=== PATIENT | female | born 1990 | race American Indian/Alaskan Native ===

== ENCOUNTER 2019-04-12 00:52 | Emergency (ER) | payer BC, OTHER ==
[2019-04-12] MEDS ORDERED: SODIUM CHLORIDE 0.9% 1000 ML 1,000 ML IV ONE (02:06)
[2019-04-12] MEDS ORDERED: METOCLOPRAMIDE 10 MG/2 ML INJ IV STA (02:06)
[2019-04-12] MEDS ORDERED: KETOROLAC 30 MG/1 ML INJ IV STA (02:06)
[2019-04-12] MEDS ORDERED: diphenhydrAMINE 50 MG/ML VIAL IV STA (02:06)
[2019-04-12] MEDS ORDERED: ONDANSETRON 4 MG/2 ML INJ IV STA (02:06)
--- NOTE | 2019-04-12 02:06 | Emergency Department Report ---
ED Headache HPI - General Chief Complaint: Headache Stated Complaint: MIGRAINE W/NAUSEA Time Seen by Provider: 04/12/19 01:46 Source: patient - History of Present Illness Initial Comments: Ms. Galarza is a 28-year-old female who presents to emergency department complaining of gradual headache that was non-maximal at onset is similar to headaches the patient has had in the past. The patient has no recent history of head trauma and is not taking any anticoagulation. They have had no sick contacts, fever, neck stiffness, rash, or seizure. Patient reports no eye pain and no change in pain when moving from light to dark environments. Additionally there have been no other household occupants with complaints of headache during this time. Patient denies rash, chills, sweats, vomiting, chest pain, shortness of breath, or syncope. Timing/Duration: 4-6 hours Quality: moderate Head Injury Location: frontal, parietal Recent Head Trauma: occasional headaches Associated Symptoms: denies: confusion, fatigue, facial pain, fever/chills, nausea/vomiting, nasal drainage, numbness in legs/feet, seizures, sinus infection, stiff neck, vision changes Allergies/Adverse Reactions: Allergies No Known Allergies Allergy (Verified 04/12/19 01:09) Home Medications: Ambulatory Orders Ibuprofen [Motrin 800 MG tab] 800 mg PO TID PRN #30 tablet 09/11/14 methOCARBAMOL [Robaxin] 500 mg PO BID PRN #30 tab 09/11/14 traMADoL [Ultram 50 MG tab] 50 mg PO Q6HR PRN #20 tablet 09/11/14 Butalb/Acetaminophen/Caffeine [Fioricet 50-300-40 mg CAP] 1 cap PO Q6HR PRN #20 cap 04/12/19 ED Review of Systems ROS: Stated complaint: MIGRAINE W/NAUSEA Other details as noted in HPI Comment: All other systems reviewed and negative ED Past Medical Hx - Past Medical History Previous Medical History?: Yes Additional medical history: ASD. WPW - Surgical History Hx Appendectomy: Yes Additional Surgical History: ASD repair. WPW repair. Tonsilectomy - Social History Smoking Status: Never Smoker Substance Use Type: None - Medications Home Medications: Home Medications Medication Instructions Recorded Confirmed Last Taken Type Ibuprofen [Motrin 800 MG tab] 800 mg PO TID PRN #30 tablet 09/11/14 Unknown Rx methOCARBAMOL [Robaxin] 500 mg PO BID PRN #30 tab 09/11/14 Unknown Rx traMADoL [Ultram 50 MG tab] 50 mg PO Q6HR PRN #20 tablet 09/11/14 Unknown Rx Butalb/Acetaminophen/Caffeine 1 cap PO Q6HR PRN #20 cap 04/12/19 Unknown Rx [Fioricet 50-300-40 mg CAP] ED Physical Exam - General Limitations: No Limitations General appearance: alert, in no apparent distress - Head Head exam: Present: atraumatic, normocephalic - Eye Eye exam: Present: normal appearance, PERRL, EOMI Pupils: Present: normal accommodation, other (negative the funduscopic examination). Absent: unequal - ENT ENT exam: Present: normal exam, normal orophraynx, mucous membranes moist, TM's normal bilaterally, other (funduscopic examination.) - Neck Neck exam: Present: normal inspection, full ROM, other (no bruits). Absent: meningismus, lymphadenopathy, thyromegaly - Respiratory Respiratory exam: Present: normal lung sounds bilaterally. Absent: respiratory distress, wheezes, rales, chest wall tenderness, accessory muscle use - Cardiovascular Cardiovascular Exam: Present: regular rate, normal rhythm. Absent: systolic murmur, diastolic murmur, rubs, gallop - GI/Abdominal GI/Abdominal exam: Present: soft, normal bowel sounds. Absent: tenderness, guarding, hyperactive bowel sounds, hypoactive bowel sounds, mass, bruit, p ulsatile mass - Extremities Exam Extremities exam: Present: normal inspection, full ROM - Back Exam Back exam: Present: normal inspection - Neurological Exam Neurological exam: Present: alert, oriented X3, CN II-XII intact, normal gait - Psychiatric Psychiatric exam: Present: normal affect, normal mood. Absent: flat affect, manic, suicidal ideation - Skin Skin exam: Present: warm, dry, intact, normal color. Absent: rash ED Course Vital Signs 04/12/19 04/12/19 04/12/19 01:09 02:24 05:35 Temperature 98.6 F 97.9 F Pulse Rate 91 H 74 Respiratory 20 18 18 Rate Blood Pressure 148/100 Blood Pressure 134/80 [Left] O2 Sat by Pulse 100 95 Oximetry ED Medical Decision Making - Medical Decision Making This patient presents with a headache most consistent with migraine. Differential diagnosis includes migraine versus tension type headache. No headac he red flags. Neurologic exam without evidence of meningismus, focal neurologic findings.Based on the patient's history and physical there is very low clinical suspicion for significant intracranial pathology. The headache was NOT sudden onset, NOT maximal at onset, there are NO neurologic findings, the patient does NOT have a fever, the patient does NOT have any jaw claudication, the patient does NOT endorse a clotting disorder, patient DENIES any trauma or eye pain and the headache is NOT associated with dizziness or ataxia. Presentation not consistent with acute intracranial bleed to include SAH (lack of risk factors, headache history). Presentation not consistent with acute [employer]UCK [employer]IVER infection to include meningitis or brain abscess, Temporal arteritis unlikely, as is acute angle closure glaucoma given history and physical findings. Presentation not consistent with other acute, emergent causes of headache at this time. Plan to treat symptomatically with pain medication. No indication for imaging/LP at this time. Plan: pain medication and serial reassessment Critical care attestation.: If time is entered above; I have spent that time in minutes in the direct care of this critically ill patient, excluding procedure time. ED Disposition Clinical Impression: Cephalgia Disposition: DC-01 TO HOME OR SELFCARE Is pt being admited?: No Does the pt Need Aspirin: No Condition: Stable Instructions: Migraine Headache (ED), Acute Headache (ED) Prescriptions: Butalb/Acetaminophen/Caffeine [Fioricet 50-300-40 mg CAP] 1 cap PO Q6HR PRN #20 cap PRN Reason: Headache Referrals: [facility] [Provider Group] - 3-5 Days TARAS REECE FNP [Advanced Practice Nurse] - 3-5 Days RITO FERREIRA MD [Staff] - 3-5 Days FAUSTO WIGGINS MD [Staff Physician] - 3-5 Days
[2019-04-12] MEDS ORDERED: dexAMETHasone 4 MG/ML VIAL IV ONE (03:48)
[2019-04-12 05:37] VITALS: BP 134/80
== END 2019-04-12 05:35 | disposition home or self-care (01) ==
LOC: ED 00:52
DX: R51 Headache (principal); Z90.89 Acquired absence of other organs; Z79.899 Other long term (current) drug therapy; Z98.890 Other specified postprocedural states
CPT/HCPCS: 96374; 96375; 99282; J1100; J1200; J1885; J2405; J2765; J7030

== ENCOUNTER 2020-09-30 03:08 | Emergency (ER) | payer SELFPAY ==
--- NOTE | 2020-09-30 04:32 | XRay Report ---
CHEST 2 VIEWS INDICATION / CLINICAL INFORMATION: CP. COMPARISON: None available. FINDINGS: SUPPORT DEVICES: None. HEART / MEDIASTINUM: Nonenlarged. Probable septal occlusion device. LUNGS / PLEURA: No significant pulmonary or pleural abnormality. No pneumothorax. ADDITIONAL FINDINGS: No significant additional findings. IMPRESSION: 1. No acute findings. Signer Name: Maite Guzmán MD Signed: 09/30/2020 4:28 AM Workstation Name: [id number]
--- NOTE | 2020-09-30 07:42 | Event Note ---
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 Patient states the chest pain began at rest. Patient was instructed by her tool repair technician to come to the emergency department if she ever experienced chest pain. States she has not used any stimulants or excessive caffeine intake in the last 24 hours. No lower extremity pain/swelling. No syncope. Tachycardic in triage. General: Awake, appropriately interactive. Appears uncomfortable. Neck: Supple. Full range of motion intact. Cardiovascular: Normal peripheral perfusion. Pulmonary: No respiratory distress. Patient is speaking normally without use of accessory muscles. Skin: No apparent rashes or lesions. Neurological: No facial asymmetry. Speech is clear. Follows commands. Patient is alert and oriented. Musculoskeletal: Moves all four extremities spontaneously with normal range of motion. Psych: Cooperative. Appropriate mood and affect. I have greeted and performed a focused rapid initial assessment of this patient. A comprehensive ED assessment and evaluation of the patient, analysis of all test results, and completion of the medical decision-making process will be conducted by additional ED providers. This initial assessment/diagnostic orders/clinical plan/treatment(s) is/are subject to change based on patients health status, clinical progression and re-assessment. Further treatment and workup at subsequent clinical provider's discretion. Patient/guardian urged not to elope from the ED as their condition may be serious if not clinically assessed and managed.
[2020-09-30 09:15] LABS: Basophils % (Auto) 0.4 % (0.0-1.8); Hemoglobin 13.9 gm/dl (10.1-14.3); Lymphocytes # (Auto) 1.6 K/mm3 (1.2-5.4); Lymphocytes % (Auto) 21.9 % (13.4-35.0); Mean Corpuscular HGB Conc 34 % (30-34); Mean Corpuscular Volume 89 fl (79-97); Monocytes # (Auto) 0.5 K/mm3 (0.0-0.8); Monocytes % (Auto) 7.6 % (0.0-7.3); Platelet Count 231 K/mm3 (140-440); Red Blood Count 4.61 M/mm3 (3.65-5.03); Red Cell Distribution Width 12.7 % (13.2-15.2)
[2020-09-30 09:34] LABS: Alanine Aminotransferase 14 units/L (7-56); Albumin 4.2 g/dL (3.9-5); Blood Urea Nitrogen 6 mg/dL (7-17); Calcium 9.3 mg/dL (8.4-10.2); Hemolysis Index 19
[2020-09-30 09:47] LABS: BUN/Creatinine Ratio 12
--- NOTE | 2020-09-30 11:13 | Emergency Department Report ---
ED Chest Pain HPI - General Chief Complaint: Chest Pain Stated Complaint: CHEST PAIN Time Seen by Provider: 09/30/20 10:58 Source: patient Mode of arrival: Ambulatory Limitations: No Limitations - History of Present Illness Initial Comments: This is a 29-year-old -[place] female presents to the emergency department with a complaint of some right-sided to midsternal chest pain that started about 1 AM this evening. It is associated with some shortness of breath and some diarrhea. She denies any fever, nausea, vomiting, back pain, lower extremity swelling or diaphoresis. She did not take anything for symptoms prior to presentation. Currently she says the pain is 7 out of 10 in intensity. It worsens with certain movements of her torso. She has a past medical history of Erghj-Nygecmtmc-Cgjwr and has a previous history of ASD with subsequent repair. She denies having a primary care physician or rn flight. She denies any tobacco or illicit drug use. No family history of early heart attack. Severity scale (0 -10): 9 - Related Data Previous Rx's Medication Instructions Recorded Last Taken Type Ibuprofen [Motrin 800 MG tab] 800 mg PO TID PRN #30 tablet 09/11/14 Unknown Rx methOCARBAMOL [Robaxin] 500 mg PO BID PRN #30 tab 09/11/14 Unknown Rx traMADoL [Ultram 50 MG tab] 50 mg PO Q6HR PRN #20 tablet 09/11/14 Unknown Rx Butalb/Acetaminophen/Caffeine 1 cap PO Q6HR PRN #20 cap 04/12/19 Unknown Rx [Fioricet 50-300-40 mg CAP] Allergies Allergy/AdvReac Type Severity Reaction Status Date / Time No Known Allergies Allergy Verified 04/12/19 01:09 Heart Score - HEART Score History: Slightly suspicious EKG: Normal Age: < 45 Risk factors: No known risk factors Troponin: < normal limit HEART Score: 0 - EKG Read Time Time EKG Completed: :19 EKG Read Time: 03:21 - Critical Actions Critical Actions: 0-3 pts:0.9-1.7%risk of adverse cardiac event.Candidate for discharge ED Review of Systems ROS: Stated complaint: CHEST PAIN Other details as noted in HPI Comment: All other systems reviewed and negative Constitutional: denies: chills, fever Eyes: denies: eye pain, vision change ENT: denies: ear pain, throat pain Respiratory: shortness of breath. denies: cough Cardiovascular: chest pain. denies: palpitations, edema Gastrointestinal: diarrhea. denies: abdominal pain, vomiting Genitourinary: denies: dysuria, discharge Musculoskeletal: denies: back pain, arthralgia Skin: denies: rash, lesions Neurological: denies: headache, weakness ED Past Medical Hx - Past Medical History Previous Medical History?: Yes Additional medical history: ASD. WPW - Surgical History Past Surgical History?: Yes Hx Appendectomy: Yes Additional Surgical History: ASD repair. WPW repair. Tonsilectomy - Social History Smoking Status: Never Smoker Substance Use Type: None - Medications Home Medications: Home Medications Medication Instructions Recorded Confirmed Last Taken Type Ibuprofen [Motrin 800 MG tab] 800 mg PO TID PRN #30 tablet 09/11/14 Unknown Rx methOCARBAMOL [Robaxin] 500 mg PO BID PRN #30 tab 09/11/14 Unknown Rx traMADoL [Ultram 50 MG tab] 50 mg PO Q6HR PRN #20 tablet 09/11/14 Unknown Rx Butalb/Acetaminophen/Caffeine 1 cap PO Q6HR PRN #20 cap 04/12/19 Unknown Rx [Fioricet 50-300-40 mg CAP] ED Physical Exam - General Limitations: No Limitations - Other Other exam information: GENERAL: The patient is well-developed well-nourished. HENT: Normocephalic. Atraumatic. Patient has moist mucous membranes. EYES: Extraocular motions are intact. NECK: Supple. Trachea is midline. CHEST/LUNGS: Clear to auscultation. There is no respiratory distress noted. There is reproducible midsternal chest pain to palpation. No crepitus or deformity. HEART/CARDIOVASCULAR: Regular. There is no tachycardia. There is no murmur. ABDOMEN: Abdomen is soft, nontender. Patient has normal bowel sounds. SKIN: Skin is warm and dry. NEURO: The patient is awake, alert, and oriented. The patient is cooperative. The patient has no focal neurologic deficits. Normal speech. MUSCULOSKELETAL: There is no tenderness or deformity. There is no limitation range of motion. ED Course Vital Signs 09/30/20 09/30/20 09/30/20 03:28 10:03 10:07 Temperature 98.4 F 98.8 F 98.8 F Pulse Rate 119 H 103 H 103 H Respiratory 18 20 20 Rate Blood Pressure 154/102 154/102 Blood Pressure 153/110 [Right] O2 Sat by Pulse 100 100 Oximetry LIO score - Lio Score Age > 65: (0) No Aspirin use within the Past 7 Days: (0) No 3 or more CAD Risk Factors: (0) No 2 or more Angina events in past 24 hrs: (1) Yes Known CAD with more than 50% Stenosis: (0) No Elevated Cardiac Markers: (0) No ST Deviation Greater than 0.5mm: (0) No LIO Score: 1 ED Medical Decision Making - Lab Data Result diagrams: 09/30/20 08:14 09/30/20 08:14 Lab Results 09/30/20 09/30/20 09/30/20 Range/Units 08:14 08:14 08:14 WBC 7.1 (4.5-11.0) K/mm3 RBC 4.61 (3.65-5.03) M/mm3 Hgb 13.9 (10.1-14.3) gm/dl Hct 41.0 (30.3-42.9) % MCV 89 (79-97) fl MCH 30 (28-32) pg MCHC 34 (30-34) % RDW 12.7 L (13.2-15.2) % Plt Count 231 (140-440) K/mm3 Lymph % (Auto) 21.9 (13.4-35.0) % [place] % (Auto) 7.6 H (0.0-7.3) % Eos % (Auto) 0.0 (0.0-4.3) % Baso % (Auto) 0.4 (0.0-1.8) % Lymph # (Auto) 1.6 (1.2-5.4) K/mm3 [place] # (Auto) 0.5 (0.0-0.8) K/mm3 Eos # (Auto) 0.0 (0.0-0.4) K/mm3 Baso # (Auto) 0.0 (0.0-0.1) K/mm3 Seg Neutrophils % 70.1 H (40.0-70.0) % Seg Neutrophils # 5.0 (1.8-7.7) K/mm3 D-Dimer (0-234) ng/mlDDU Sodium 139 (137-145) mmol/L Potassium 4.1 (3.6-5.0) mmol/L Chloride 102.9 (98-107) mmol/L Carbon Dioxide 22 (22-30) mmol/L Anion Gap 18 mmol/L BUN 6 L (7-17) mg/dL Creatinine 0.5 L (0.6-1.2) mg/dL Estimated GFR > 60 ml/min BUN/Creatinine Ratio 12 % Glucose 99 (65-100) mg/dL Calcium 9.3 (8.4-10.2) mg/dL Magnesium 1.80 (1.7-2.3) mg/dL Total Bilirubin 0.40 (0.1-1.2) mg/dL AST 18 (5-40) units/L ALT 14 (7-56) units/L Alkaline Phosphatase 84 (35-129) units/L Troponin T < 0.010 (0.00-0.029) ng/mL Total Protein 8.0 (6.3-8.2) g/dL Albumin 4.2 (3.9-5) g/dL Albumin/Globulin Ratio 1.1 % HCG, Qual Negative (Negative) 09/30/20 09/30/20 Range/Units 11:37 11:37 WBC (4.5-11.0) K/mm3 RBC (3.65-5.03) M/mm3 Hgb (10.1-14.3) gm/dl Hct (30.3-42.9) % MCV (79-97) fl MCH (28-32) pg MCHC (30-34) % RDW (13.2-15.2) % Plt Count (140-440) K/mm3 Lymph % (Auto) (13.4-35.0) % [place] % (Auto) (0.0-7.3) % Eos % (Auto) (0.0-4.3) % Baso % (Auto) (0.0-1.8) % Lymph # (Auto) (1.2-5.4) K/mm3 [place] # (Auto) (0.0-0.8) K/mm3 Eos # (Auto) (0.0-0.4) K/mm3 Baso # (Auto) (0.0-0.1) K/mm3 Seg Neutrophils % (40.0-70.0) % Seg Neutrophils # (1.8-7.7) K/mm3 D-Dimer 191.60 (0-234) ng/mlDDU Sodium (137-145) mmol/L Potassium (3.6-5.0) mmol/L Chloride (98-107) mmol/L Carbon Dioxide (22-30) mmol/L Anion Gap mmol/L BUN (7-17) mg/dL Creatinine (0.6-1.2) mg/dL Estimated GFR ml/min BUN/Creatinine Ratio % Glucose (65-100) mg/dL Calcium (8.4-10.2) mg/dL Magnesium (1.7-2.3) mg/dL Total Bilirubin (0.1-1.2) mg/dL AST (5-40) units/L ALT (7-56) units/L Alkaline Phosphatase (35-129) units/L Troponin T < 0.010 (0.00-0.029) ng/mL Total Protein (6.3-8.2) g/dL Albumin (3.9-5) g/dL Albumin/Globulin Ratio % HCG, Qual (Negative) - EKG Data -: EKG Interpreted by Tn EKG shows normal: sinus rhythm, axis (Left axis deviation), intervals, QRS complexes, ST-T waves Rate: tachycardia (110 bpm) - EKG Data When compared to previous EKG there are: previous EKG unavailable Interpretation: other (Sinus tachycardia 110 bpm, left axis deviation. No ST elevation TN) - Radiology Data Radiology results: image reviewed interpreted by ca: Chest x-ray does not show any acute process. There are no pleural effusions, obvious pneumonia and there is no pneumothorax. No significant cardiomegaly. - Medical Decision Making This patient presents to the emergency department with a complaint of some midsternal to left-sided chest pain and some shortness of breath that has been going on since last night. On examination the patient has reproducible chest wall tenderness to palpation without crepitus or deformity. Heart and lung sounds are normal to auscultation. She does not appear in any respiratory or acute distress. EKG does not have any morphology consistent with ST elevation myocardial infarction. Chest x-ray does not show any pneumonia, pneumothorax, pleural effusions, or any other acute process. The patient's labs have been unremarkable including CBC, metabolic panel, negative troponin and a negative D-dimer. She was given a shot of Toradol with some improvement of her discomfort. She is low on the heart and LIO score. For all these reason she appears safe for discharge home at this time. Her contact information has been sent over to the [facility], and someone from their office should be contacting her shortly for close outpatient follow-up as part of our [facility] low risk chest pain protocol. Critical Care Time: No Critical care attestation.: If time is entered above; I have spent that time in minutes in the direct care of this critically ill patient, excluding procedure time. ED Disposition Clinical Impression: Atypical chest pain, Elevated blood pressure reading Disposition: TO HOME OR SELFCARE Is pt being admited?: No Condition: Stable Instructions: Nonspecific Chest Pain, Adult, Chest Wall Pain Additional Instructions: Please follow-up with a primary care physician in the next few days. I am giving you a referral for a local primary care physician and a local primary care clinic. I am sending your contact information to the [facility] [place], and someone from their office should be contacting you shortly for close outpatient follow-up. Just in case, I am giving you a referral for one of their rn flight, Dr. Arce. Return to the emergency department with any worsening of your symptoms, new or concerning symptoms not addressed during this current emergency department visit, or with any acute distress. Referrals: NAPOLEON BENITEZ MD [Primary Care Provider] - 2-3 Days GILES ARCE MD [Staff Physician] - 2-3 Days DELFINO LY MD [Staff Physician] - 2-3 Days [facility] [Provider Group] - 2-3 Days Time of Disposition: 14:09
[2020-09-30] MEDS ORDERED: KETOROLAC 30 MG/1 ML INJ IM ONE (12:20)
[2020-09-30 17:07] VITALS: BP 141/98
--- NOTE | 2020-09-30 17:55 | Electrocardiograph Report ---
[facility] Test Date: 2020-09-30 Test Time: 03:19:25 Pat Name: ANNEMARIE RYAN Department: Room: Gender: F Business Development Agent: MIROSLAVA : 1990 Requested By: ED DOC Order Number: [id number] Reading MD: Sidney Conner Measurements Intervals [place] Rate: 110 P: 18 PA: 137 QRS: -31 QRSD: 85 T: 38 QT: 329 QTc: 446 Interpretive Statements Sinus tachycardia Left axis deviation No previous ECG available for comparison Electronically Signed On 09-30-2020 17:55:27 EDT by Sidney Conner
== END 2020-09-30 14:22 | disposition home or self-care (01) ==
LOC: ED 03:08
DX: R07.89 Other chest pain (principal); R03.0 Elevated blood-pressure reading, without diagnosis of hypertension; Z90.49 Acquired absence of other specified parts of digestive tract; Z98.890 Other specified postprocedural states; Z79.1 Long term (current) use of non-steroidal anti-inflammatories (NSAID); Z79.899 Other long term (current) drug therapy
CPT/HCPCS: 36415; 71046; 80053; 83735; 84484; 84703; 85025; 85379; 93005; 96372; 99284; J1885